=== PATIENT | male | born 1950 | race Caucasian/White ===

== ENCOUNTER 2021-04-14 16:15 | Emergency (ER) | payer OTHER, BC ==
[2021-04-14 16:44] VITALS: BMI 21.2
[2021-04-14] MEDS ORDERED: CLOTRIMAZOLE 1% CREAM 15 GM TUBE TP ONE (17:56)
[2021-04-14 18:41] LABS: BASO % 0.4 % (0-2.0); EOS % 1.4 % (0-4.5); HEMATOCRIT 36.4 % (35.4-49); HEMOGLOBIN 12.2 GM/dL (11.7-16.9); LYMPH % 16.7 % (8-40); MCHC 33.4 g/dl (32.0-35.9); MEAN CELL VOLUME 86.8 fl (80-96); MEAN PLT VOLUME 8.9 fl (7.5-11.1); MONO % 10.3 % (3.8-10.2); NEUT % 71.2 % (42.8-82.8); PLATELET COUNT 242 K/MM3 (134-434); RDW 15.8 % (11.9-15.9)
[2021-04-14 18:43] LABS: EPI CELLS 14 /uL (0-25.1); HYALINE CASTS 3 /uL (0-3.1); PH,URINE 8.5 (5.0-8.0); URINE APPEARANCE CLOUDY; URINE BILIRUBIN NEGATIVE (NEGATIVE); URINE COLOR YELLOW; URINE GLUCOSE (UA) NEGATIVE (NEGATIVE); URINE KETONE TRACE (NEGATIVE); URINE LEUK ESTERASE 3+ (NEGATIVE); URINE NITRITE POSITIVE (NEGATIVE); URINE PROTEIN 1+ (NEGATIVE); URINE RBC 485 /uL (0-23.9); URINE WBC 2976 /uL (0-25.8)
[2021-04-14 18:47] LABS: PROTHROMBIN TIME (PATIENT) 48.5 SEC (9.7-13.0)
[2021-04-14 18:50] LABS: ACTIVATED PTT 42.9 SECONDS (25.2-36.5); URINE BACTERIA 483.7 /uL (0-1359)
[2021-04-14 18:58] LABS: CALCIUM 8.9 mg/dL (8.5-10.1)
[2021-04-14 18:59] LABS: ALBUMIN 3.3 g/dl (3.4-5.0)
[2021-04-14 19:03] LABS: CREATININE 1.2 mg/dL (0.55-1.3)
[2021-04-14 19:04] LABS: BILIRUBIN,TOTAL 0.8 mg/dL (0.2-1)
[2021-04-14 19:19] LABS: INR 4.11 (0.83-1.09)
[2021-04-14] MEDS ORDERED: QUEtiapine FUMARATE 25 MG TABLET PO ONE (21:21)
[2021-04-14] MEDS ORDERED: QUEtiapine FUMARATE 25 MG TABLET ONE (21:21)
[2021-04-14] MEDS ORDERED: LORazepam 2 MG/ML SDV VIAL IVPUSH ONE (21:25)
[2021-04-14] MEDS ORDERED: LORazepam 2 MG/ML SDV VIAL ONE (21:26)
[2021-04-15 01:29] VITALS: BP 114/88; PULSE 75; TEMP 98.3
== END 2021-04-15 01:30 | disposition home or self-care (01) ==
LOC: JER 16:15
PROC: 3E033NZ Introduction of Analgesics, Hypnotics, Sedatives into Peripheral Vein, Percutaneous Approach (ICD-10-PCS; principal; 2021-04-14)
DX: L89.609 Pressure ulcer of unspecified heel, unspecified stage (principal); N48.1 Balanitis; N36.9 Urethral disorder, unspecified
CPT/HCPCS: 36415; 80053; 81003; 85025; 85610; 85730; 87086; 87186; 99284-25

== ENCOUNTER 2021-04-20 17:34 | Inpatient (IN) | payer OTHER, BC ==
[2021-04-20 19:08] VITALS: BMI 24.3
[2021-04-20] MEDS ORDERED: LORazepam 2 MG/ML SDV VIAL IM ONE (19:49)
[2021-04-20] MEDS ORDERED: HALOPERIDOL LACTATE 5 MG/ML IM ONE (19:49)
[2021-04-20] MEDS ORDERED: HALOPERIDOL LACTATE 5 MG/ML ONE (19:51)
[2021-04-20] MEDS ORDERED: LORazepam 2 MG/ML SDV VIAL ONE (19:52)
[2021-04-21 00:02] LABS: HEMATOCRIT 37.3 % (35.4-49); HEMOGLOBIN 12.6 GM/dL (11.7-16.9); LYMPH % 21.8 % (8-40); MCH 29.3 pg (25.7-33.7); MCHC 33.8 g/dl (32.0-35.9); MEAN CELL VOLUME 86.8 fl (80-96); MEAN PLT VOLUME 8.7 fl (7.5-11.1); MONO % 7.5 % (3.8-10.2); NEUT % 66.7 % (42.8-82.8); PLATELET COUNT 248 K/MM3 (134-434); WHITE BLOOD COUNT 8.2 K/mm3 (4.0-10.0)
[2021-04-21 00:09] LABS: EPI CELLS >36 /uL (0-25.1); HYALINE CASTS 9 /uL (0-3.1); PH,URINE 6.5 (5.0-8.0); URINE APPEARANCE CLOUDY; URINE BACTERIA 66 /uL (0-1359); URINE BILIRUBIN NEGATIVE (NEGATIVE); URINE COLOR YELLOW; URINE GLUCOSE (UA) NEGATIVE (NEGATIVE); URINE KETONE TRACE (NEGATIVE); URINE LEUK ESTERASE 2+ (NEGATIVE); URINE NITRITE NEGATIVE (NEGATIVE); URINE PROTEIN 1+ (NEGATIVE); URINE RBC 231 /uL (0-23.9); URINE WBC 208 /uL (0-25.8)
[2021-04-21 00:10] LABS: INR 1.5 (0.83-1.09); PROTHROMBIN TIME (PATIENT) 18.2 SEC (9.7-13.0)
[2021-04-21 00:14] LABS: ACTIVATED PTT 29.6 SECONDS (25.2-36.5)
[2021-04-21 00:23] LABS: CHLORIDE 106 mmol/L (98-107); SODIUM 139 mmol/L (136-145)
[2021-04-21 00:25] LABS: CALCIUM 9.2 mg/dL (8.5-10.1)
[2021-04-21 00:26] LABS: ALBUMIN 3.5 g/dl (3.4-5.0); ANION GAP 7 MMOL/L (8-16); BLOOD UREA NITROGEN 18.5 mg/dL (7-18); CO2 27 mmol/L (21-32); GLUCOSE,RANDOM 84 mg/dL (74-106)
[2021-04-21 00:29] LABS: SGOT/AST 23 U/L (15-37); SGPT/ALT 24 U/L (13-61)
[2021-04-21 00:30] LABS: BILIRUBIN,TOTAL 0.6 mg/dL (0.2-1); TOT PROT 7.5 g/dl (6.4-8.2)
[2021-04-21 00:32] LABS: ALK PHOS 108 U/L (45-117)
[2021-04-21 00:34] LABS: N-TERMINAL BNP 1265.4 pg/ml (5-125)
[2021-04-21 02:49] LABS: URINE CRYSTALS NONE SEEN /hpf
[2021-04-21] MEDS ORDERED: POLYETHYLENE GLYCOL 3350 119 GM BTL PO PRN (11:00)
[2021-04-21] MEDS ORDERED: ACETAMINOPHEN 325 MG TABLET (FP) PO PRN (11:00)
[2021-04-21] MEDS ORDERED: WARFARIN NA 5 MG TABLET ONE (17:33)
[2021-04-21] MEDS ORDERED: WARFARIN NA 5 MG TABLET PO SCH (18:00)
[2021-04-21] MEDS: METOPROLOL TARTRATE 50 MG TABLET (FP) PO SCH (22:21)
[2021-04-21] MEDS: ATORVASTATIN CA 80 MG TABLET (FP) PO SCH (22:21)
[2021-04-22 07:10] LABS: BASO % 0.8 % (0-2.0); EOS % 2.4 % (0-4.5); HEMOGLOBIN 11.9 GM/dL (11.7-16.9); LYMPH % 17.9 % (8-40); MCH 29.7 pg (25.7-33.7); MCHC 34.1 g/dl (32.0-35.9); MEAN CELL VOLUME 87.2 fl (80-96); MEAN PLT VOLUME 8.6 fl (7.5-11.1); MONO % 9.5 % (3.8-10.2); NEUT % 69.4 % (42.8-82.8); PLATELET COUNT 254 K/MM3 (134-434); RBC 4.01 M/mm3 (4.00-5.60); RDW 15.8 % (11.9-15.9)
[2021-04-22 07:13] LABS: INR 1.48 (0.83-1.09); PROTHROMBIN TIME (PATIENT) 17.7 SEC (9.7-13.0)
[2021-04-22 07:38] LABS: CALCIUM 8.9 mg/dL (8.5-10.1)
[2021-04-22 07:39] LABS: ALBUMIN 3.1 g/dl (3.4-5.0); BLOOD UREA NITROGEN 18.6 mg/dL (7-18)
[2021-04-22 07:42] LABS: BILIRUBIN,TOTAL 0.5 mg/dL (0.2-1); CREATININE 0.7 mg/dL (0.55-1.3)
[2021-04-22 07:45] LABS: TOT PROT 6.5 g/dl (6.4-8.2)
[2021-04-22] MEDS: PANTOPRAZOLE 40 MG TABLET PO SCH (09:48)
[2021-04-22] MEDS: SPIRONOLACTONE 25 MG TABLET PO SCH (09:48)
[2021-04-22] MEDS: SERTRALINE HCL 25 MG TABLET (FP) PO SCH (09:48)
[2021-04-22] MEDS: METOPROLOL TARTRATE 50 MG TABLET (FP) PO SCH (09:49)
[2021-04-22] MEDS: amLODIPine BESYLATE 10 MG TABLET (FP) PO SCH (09:49)
[2021-04-22 14:06] LABS: CHOLESTEROL 100 mg/dL (50-200)
[2021-04-22 14:07] LABS: LDL CHOLESTEROL (ONLY SJRH) 49 mg/dL (5-100); TRIGLYCERIDES 72 mg/dL (0-150)
[2021-04-22 14:09] LABS: HDL CHOLESTEROL 35 mg/dL (40-60)
[2021-04-22] MEDS ORDERED: WARFARIN NA 7.5 MG TABLET PO SCH ×2 (18:00→18:45)
[2021-04-22] MEDS ORDERED: HALOPERIDOL LACTATE 5 MG/ML IM ONE (20:02)
[2021-04-22] MEDS ORDERED: LORazepam 2 MG/ML SDV VIAL IVPUSH ONE (20:09)
[2021-04-22] MEDS ORDERED: LORazepam 2 MG/ML SDV VIAL ONE (20:12)
[2021-04-23] MEDS: METOPROLOL TARTRATE 50 MG TABLET (FP) PO SCH ×2 (00:30→09:56)
[2021-04-23] MEDS: ATORVASTATIN CA 80 MG TABLET (FP) PO SCH (00:30)
[2021-04-23 07:29] LABS: INR 2.01 (0.83-1.09); PROTHROMBIN TIME (PATIENT) 24.2 SEC (9.7-13.0)
[2021-04-23 09:07] VITALS: BP 111/67; PULSE 80; TEMP 97.5
[2021-04-23] MEDS: SERTRALINE HCL 25 MG TABLET (FP) PO SCH (09:56)
[2021-04-23] MEDS: amLODIPine BESYLATE 10 MG TABLET (FP) PO SCH (09:56)
[2021-04-23] MEDS: PANTOPRAZOLE 40 MG TABLET PO SCH (09:56)
[2021-04-23] MEDS: SPIRONOLACTONE 25 MG TABLET PO SCH (09:56)
[2021-04-23] MEDS ORDERED: BACITRACIN 15 GM TUBE TOPICAL OINTMENT TP SCH (10:00)
[2021-04-23] MEDS ORDERED: WARFARIN NA 7.5 MG TABLET PO SCH (18:00)
== END 2021-04-23 15:26 | DRG 64 ==
LOC: JER 17:34 → JERBED 04-21 01:58 → J4W 04-21 21:27
PROVIDERS: ADMIT Hospitalist; ATTEND Internal Medicine
DX: I63.9 Cerebral infarction, unspecified (principal); L89.613 Pressure ulcer of right heel, stage 3; F03.91 Unspecified dementia, unspecified severity, with behavioral disturbance; I48.91 Unspecified atrial fibrillation; I10 Essential (primary) hypertension; E78.5 Hyperlipidemia, unspecified
CPT/HCPCS: 36415; 70450-TC; 72125-TC; 80053; 80061; 81003; 82550; 82962; 83036; 83721; 83880; 84484; 85025; 85610; 85730; 87086; 93005; 93010; 93880-TC; 97116-GP; 97161-GP; 99285-25; C9803; U0003; U0005

== ENCOUNTER 2021-04-25 07:43 | Emergency (ER) | payer OTHER, BC ==
[2021-04-25 08:03] VITALS: TEMP 98.5; BMI 23.3
[2021-04-25 10:53] VITALS: BP 125/60; PULSE 65
== END 2021-04-25 10:29 | disposition home or self-care (01) ==
LOC: JER 07:43
DX: T83.028A Displacement of other urinary catheter, initial encounter (principal)
CPT/HCPCS: 99283-25

== ENCOUNTER 2021-05-10 23:43 | Observation (INO) | payer OTHER, BC ==
[2021-05-11 01:18] LABS: EOS % 3.8 % (0-4.5); HEMATOCRIT 35.7 % (35.4-49); HEMOGLOBIN 11.9 GM/dL (11.7-16.9); LYMPH % 23.9 % (8-40); MCH 29.1 pg (25.7-33.7); MCHC 33.5 g/dl (32.0-35.9); MONO % 9.7 % (3.8-10.2); NEUT % 61.6 % (42.8-82.8); PLATELET COUNT 235 10^3/uL (134-434); RDW 16.5 % (11.9-15.9); WHITE BLOOD COUNT 6.8 K/mm3 (4.0-10.0)
[2021-05-11 01:25] LABS: INR 1.33 (0.83-1.09); PROTHROMBIN TIME (PATIENT) 16.2 SEC (9.7-13.0)
[2021-05-11 01:27] LABS: ACTIVATED PTT 29.6 SECONDS (25.2-36.5)
[2021-05-11 01:38] LABS: ALBUMIN 3.1 g/dl (3.4-5.0); BLOOD UREA NITROGEN 22.6 mg/dL (7-18); CALCIUM 8.8 mg/dL (8.5-10.1)
[2021-05-11 01:41] LABS: CREATININE 0.8 mg/dL (0.55-1.3)
[2021-05-11 01:43] LABS: BILIRUBIN,TOTAL 0.5 mg/dL (0.2-1); TOT PROT 6.4 g/dl (6.4-8.2)
[2021-05-11 03:25] LABS: EPI CELLS 18 /uL (0-25.1); HYALINE CASTS 1 /uL (0-3.1); PH,URINE 5.5 (5.0-8.0); URINE APPEARANCE CLEAR; URINE BACTERIA 54 /uL (0-1359); URINE BILIRUBIN NEGATIVE (NEGATIVE); URINE COLOR YELLOW; URINE GLUCOSE (UA) NEGATIVE (NEGATIVE); URINE KETONE NEGATIVE (NEGATIVE); URINE LEUK ESTERASE 2+ (NEGATIVE); URINE NITRITE NEGATIVE (NEGATIVE); URINE PROTEIN 1+ (NEGATIVE); URINE RBC 61 /uL (0-23.9); URINE WBC 212 /uL (0-25.8)
[2021-05-11] MEDS ORDERED: CEFTRIAXONE 1,000 MG in DEXTROSE 5%-WATER - 50 ML IVPB ONE (04:41)
[2021-05-11] MEDS ORDERED: CEFTRIAXONE 1 GM/50 ML BAG ONE (05:01)
[2021-05-11 12:12] VITALS: BMI 21.3
[2021-05-11] MEDS ORDERED: POLYETHYLENE GLYCOL 3350 119 GM BTL PO PRN (12:20)
[2021-05-11] MEDS ORDERED: ACETAMINOPHEN 325 MG TABLET (FP) PO PRN (12:20)
[2021-05-11] MEDS: amLODIPine BESYLATE 10 MG TABLET (FP) PO SCH (15:16)
[2021-05-11] MEDS: QUEtiapine FUMARATE 25 MG TABLET PO SCH ×2 (15:16→23:00)
[2021-05-11] MEDS: SERTRALINE HCL 25 MG TABLET (FP) PO SCH (15:16)
[2021-05-11] MEDS ORDERED: PT OWN MED DRAWER 7, Y5N ONE (17:22)
[2021-05-11] MEDS: LORazepam 2 MG/ML SDV VIAL IVPUSH PRN (18:50)
[2021-05-11] MEDS ORDERED: ATORVASTATIN CA 80 MG TABLET (FP) PO SCH (22:00)
[2021-05-11] MEDS: METOPROLOL TARTRATE 50 MG TABLET (FP) PO SCH (23:00)
[2021-05-12] MEDS: LORazepam 2 MG/ML SDV VIAL IVPUSH PRN (08:28)
[2021-05-12] MEDS: amLODIPine BESYLATE 10 MG TABLET (FP) PO SCH (09:10)
[2021-05-12] MEDS: QUEtiapine FUMARATE 25 MG TABLET PO SCH ×2 (09:10→12:03)
[2021-05-12] MEDS: METOPROLOL TARTRATE 50 MG TABLET (FP) PO SCH (09:10)
[2021-05-12] MEDS: SERTRALINE HCL 25 MG TABLET (FP) PO SCH (09:10)
[2021-05-12] MEDS ORDERED: SPIRONOLACTONE 25 MG TABLET PO SCH (10:00)
[2021-05-12] MEDS ORDERED: PANTOPRAZOLE 40 MG TABLET PO SCH (10:00)
[2021-05-12] MEDS ORDERED: NYSTATIN 100000 UNIT/GM TOPICAL OINTMENT 15 GM TUBE TP SCH (10:00)
[2021-05-12] MEDS ORDERED: SILVER SULFADIAZINE 1% TOP CREAM 50 GM JAR TP SCH (10:00)
[2021-05-12] MEDS ORDERED: DEXMEDETOMIDINE HCL 200 MCG/2 ML IVPB ONE (13:09)
[2021-05-12] MEDS ORDERED: ACETAMINOPHEN INJECTION 100 ML IVPB ONE (13:10)
[2021-05-12] MEDS ORDERED: LIDOCAINE HCL 2% JELLY (5 ML/TUBE) ONE (13:35)
[2021-05-12] MEDS ORDERED: PROPOFOL 20 ML ONE (13:36)
[2021-05-12] MEDS ORDERED: KETAMINE HCL 200 MG/20 ML VIAL ONE (13:37)
[2021-05-12] MEDS ORDERED: EPHEDRINE SULFATE/0.9% NACL/PF 50 MG/10 ML SYRINGE NR ONE (13:37)
[2021-05-12] MEDS ORDERED: ceFAZolin 2 GRAM PREMIX BAG IVPB ONE (13:57)
[2021-05-12] MEDS ORDERED: POLYETHYLENE GLYCOL (HEALTHYLAX) 3350 17 GM PACKET PO PRN (14:52)
[2021-05-12] MEDS ORDERED: ACETAMINOPHEN 325 MG TABLET (FP) PO PRN (14:52)
[2021-05-12] MEDS ORDERED: LORazepam 2 MG/ML SDV VIAL IVPUSH PRN (14:52)
[2021-05-12 16:30] VITALS: BP 133/84; PULSE 76; TEMP 97.6
[2021-05-12] MEDS ORDERED: METOPROLOL TARTRATE 50 MG TABLET (FP) PO SCH (22:00)
[2021-05-12] MEDS ORDERED: ATORVASTATIN CA 80 MG TABLET (FP) PO SCH (22:00)
[2021-05-12] MEDS ORDERED: QUEtiapine FUMARATE 25 MG TABLET PO SCH (22:00)
[2021-05-13] MEDS ORDERED: SPIRONOLACTONE 25 MG TABLET PO SCH (10:00)
[2021-05-13] MEDS ORDERED: PANTOPRAZOLE 40 MG TABLET PO SCH (10:00)
[2021-05-13] MEDS ORDERED: SERTRALINE HCL 25 MG TABLET (FP) PO SCH (10:00)
[2021-05-13] MEDS ORDERED: NYSTATIN 100000 UNIT/GM TOPICAL OINTMENT 15 GM TUBE TP SCH (10:00)
[2021-05-13] MEDS ORDERED: amLODIPine BESYLATE 10 MG TABLET (FP) PO SCH (10:00)
[2021-05-13] MEDS ORDERED: SILVER SULFADIAZINE 1% TOP CREAM 50 GM JAR TP SCH (10:00)
[2021-05-13] MEDS ORDERED: QUEtiapine FUMARATE 25 MG TABLET PO SCH (12:30)
== END 2021-05-12 21:00 ==
LOC: JER 23:43 → UNDOADMOB 05-11 05:13 → JERBED 05-11 05:13 → INTOOBSV 05-11 05:13 → JERBED 05-11 09:21 → J7W 05-11 09:21 → JERBED 05-11 10:21 → J7W 05-11 18:33
PROVIDERS: ADMIT Internal Medicine; ATTEND Internal Medicine
PROC: 0T9B00Z Drainage of Bladder with Drainage Device, Open Approach (ICD-10-PCS; principal; 2021-05-11)
PROC: 0T9B70Z Drainage of Bladder with Drainage Device, Via Natural or Artificial Opening (ICD-10-PCS; 2021-05-11)
PROC: 3E03329 Introduction of Other Anti-infective into Peripheral Vein, Percutaneous Approach (ICD-10-PCS; 2021-05-11)
DX: T83.020A Displacement of cystostomy catheter, initial encounter (principal); T07.XXXA Unspecified multiple injuries, initial encounter; Y82.8 Other medical devices associated with adverse incidents; Y92.9 Unspecified place or not applicable; R33.8 Other retention of urine; N39.0 Urinary tract infection, site not specified; F03.90 Unspecified dementia, unspecified severity, without behavioral disturbance, psychotic disturbance, mood disturbance, and anxiety; I50.9 Heart failure, unspecified; I11.0 Hypertensive heart disease with heart failure; I48.91 Unspecified atrial fibrillation; Z86.73 Personal history of transient ischemic attack (TIA), and cerebral infarction without residual deficits; Z20.822 Contact with and (suspected) exposure to COVID-19; R41.82 Altered mental status, unspecified
CPT/HCPCS: 36415; 51040; 51702; 80053; 81003; 85025; 85610; 85730; 86850; 86900; 86901; 87086; 93005; 93010; 94760; 96374; 96375; 99285-25; C9803; G0378; J0131; U0003; U0005

== ENCOUNTER 2021-07-04 14:43 | Inpatient (IN) | payer OTHER, BC ==
[2021-07-04 17:45] LABS: INR 2.17 (0.83-1.09); PROTHROMBIN TIME (PATIENT) 26.1 SEC (9.7-13.0)
[2021-07-04 19:55] LABS: HEMATOCRIT 41.7 % (35.4-49); MCH 30.6 pg (25.7-33.7); MCHC 33.7 g/dl (32.0-35.9); MEAN CELL VOLUME 90.8 fl (80-96); MEAN PLT VOLUME 9.7 fl (7.5-11.1); PLATELET COUNT 249 10^3/uL (134-434); RBC 4.59 M/mm3 (4.00-5.60); RDW 14.7 % (11.9-15.9); WHITE BLOOD COUNT 14.4 K/mm3 (4.0-10.0)
[2021-07-04 19:58] LABS: ADD RBC MORPHOLOGY YES
[2021-07-04 20:09] LABS: EPI CELLS 33 /uL (0-25.1); HYALINE CASTS 19 /uL (0-3.1); PH,URINE >= 9.0 (5.0-8.0); URINE APPEARANCE TURBID; URINE BACTERIA 2339 /uL (0-1359); URINE BILIRUBIN NEGATIVE (NEGATIVE); URINE COLOR YELLOW; URINE GLUCOSE (UA) TRACE (NEGATIVE); URINE KETONE NEGATIVE (NEGATIVE); URINE LEUK ESTERASE 3+ (NEGATIVE); URINE NITRITE NEGATIVE (NEGATIVE); URINE PROTEIN 3+ (NEGATIVE); URINE RBC 138 /uL (0-23.9); URINE WBC 46 /uL (0-25.8)
[2021-07-04 20:27] LABS: CHLORIDE 104 mmol/L (98-107); SODIUM 138 mmol/L (136-145)
[2021-07-04 20:29] LABS: CALCIUM 9.1 mg/dL (8.5-10.1)
[2021-07-04 20:30] LABS: ALBUMIN 4.1 g/dl (3.4-5.0); ANION GAP 10 MMOL/L (8-16); CO2 24 mmol/L (21-32); GLUCOSE,RANDOM 157 mg/dL (74-106)
[2021-07-04 20:33] LABS: CREATININE 1.1 mg/dL (0.55-1.3); SGOT/AST 28 U/L (15-37); SGPT/ALT 50 U/L (13-61)
[2021-07-04 20:36] LABS: ALK PHOS 124 U/L (45-117)
[2021-07-04 20:38] LABS: TOT PROT 8.1 g/dl (6.4-8.2)
[2021-07-04 20:47] LABS: BILIRUBIN,TOTAL 0.7 mg/dL (0.2-1)
[2021-07-04] MEDS ORDERED: CEFTRIAXONE 1,000 MG in DEXTROSE 5%-WATER - 50 ML IVPB ONE (20:53)
[2021-07-04 21:03] LABS: ANISOCYTOSIS 0; MACROCYTOSIS 0; PLATELET ESTIMATE NORMAL
[2021-07-04] MEDS ORDERED: CEFTRIAXONE 1 GM/50 ML BAG ONE (21:31)
[2021-07-04] MEDS ORDERED: QUEtiapine FUMARATE 25 MG TABLET PO ONE (23:25)
[2021-07-04] MEDS ORDERED: QUEtiapine FUMARATE 25 MG TABLET ONE (23:36)
[2021-07-05] MEDS ORDERED: POLYETHYLENE GLYCOL (HEALTHYLAX) 3350 17 GM PACKET PO PRN (06:42)
[2021-07-05] MEDS ORDERED: PANTOPRAZOLE 40 MG TABLET ONE (09:44)
[2021-07-05] MEDS ORDERED: CEFTRIAXONE 1 GM/50 ML BAG ONE (09:45)
[2021-07-05] MEDS ORDERED: METOPROLOL TARTRATE 50 MG TABLET (FP) ONE (09:45)
[2021-07-05] MEDS ORDERED: SPIRONOLACTONE 25 MG TABLET ONE (09:45)
[2021-07-05] MEDS ORDERED: QUEtiapine FUMARATE 25 MG TABLET ONE ×2 (09:45→12:22)
[2021-07-05] MEDS: SPIRONOLACTONE 25 MG TABLET PO SCH (10:08)
[2021-07-05] MEDS: METOPROLOL TARTRATE 50 MG TABLET (FP) PO SCH ×2 (10:08→22:46)
[2021-07-05] MEDS: amLODIPine BESYLATE 5 MG TABLET (FP) PO SCH (10:08)
[2021-07-05] MEDS: PANTOPRAZOLE 40 MG TABLET PO SCH (10:08)
[2021-07-05] MEDS: CEFTRIAXONE 1 GM in DEXTROSE 5%-WATER - 50 ML IVPB SCH (10:08)
[2021-07-05 10:25] LABS: BASO % 0.1 % (0-2.0); HEMATOCRIT 39.4 % (35.4-49); HEMOGLOBIN 13.4 GM/dL (11.7-16.9); MCH 30.2 pg (25.7-33.7); MEAN CELL VOLUME 88.8 fl (80-96); MEAN PLT VOLUME 8.7 fl (7.5-11.1); MONO % 7.1 % (3.8-10.2); NEUT % 88.8 % (42.8-82.8); PLATELET COUNT 239 10^3/uL (134-434); RBC 4.44 M/mm3 (4.00-5.60); RDW 15.3 % (11.9-15.9); WHITE BLOOD COUNT 16.2 K/mm3 (4.0-10.0)
[2021-07-05] MEDS: QUEtiapine FUMARATE 25 MG TABLET PO SCH ×3 (10:42→22:47)
[2021-07-05] MEDS: SERTRALINE HCL 25 MG TABLET (FP) PO SCH (10:42)
[2021-07-05 10:44] LABS: INR 1.83 (0.83-1.09); PROTHROMBIN TIME (PATIENT) 21.8 SEC (9.7-13.0)
[2021-07-05 11:31] LABS: CALCIUM 9.3 mg/dL (8.5-10.1)
[2021-07-05 11:32] LABS: BLOOD UREA NITROGEN 35.1 mg/dL (7-18)
[2021-07-05 11:35] LABS: CREATININE 0.9 mg/dL (0.55-1.3)
[2021-07-05] MEDS ORDERED: WARFARIN NA 1 MG TABLET ONE (17:15)
[2021-07-05] MEDS ORDERED: WARFARIN NA 5 MG TABLET ONE (17:16)
[2021-07-05] MEDS ORDERED: WARFARIN NA 1 MG TABLET PO ONE (18:00)
[2021-07-05] MEDS ORDERED: WARFARIN NA 7.5 MG TABLET PO SCH ×2 (18:00→18:05)
[2021-07-05] MEDS: ATORVASTATIN CA 80 MG TABLET (FP) PO SCH (22:47)
[2021-07-06 10:40] LABS: BASO % 0.2 % (0-2.0); EOS % 0.5 % (0-4.5); HEMATOCRIT 38.4 % (35.4-49); HEMOGLOBIN 12.6 GM/dL (11.7-16.9); LYMPH % 11.5 % (8-40); MCH 30.2 pg (25.7-33.7); MCHC 32.8 g/dl (32.0-35.9); MEAN CELL VOLUME 92.1 fl (80-96); MEAN PLT VOLUME 9.5 fl (7.5-11.1); MONO % 8.4 % (3.8-10.2); NEUT % 79.4 % (42.8-82.8); PLATELET COUNT 193 10^3/uL (134-434); RBC 4.17 M/mm3 (4.00-5.60); RDW 15.1 % (11.9-15.9); WHITE BLOOD COUNT 12.8 K/mm3 (4.0-10.0)
[2021-07-06 10:48] LABS: INR 2.18 (0.83-1.09); PROTHROMBIN TIME (PATIENT) 25.8 SEC (9.7-13.0)
[2021-07-06] MEDS ORDERED: DEXTROSE 5%-WATER - 50 ML IVPB ONE (10:57)
[2021-07-06] MEDS ORDERED: cefTRIAXone SODIUM 1 GM VIAL ONE (10:57)
[2021-07-06] MEDS ORDERED: PT OWN MED DRAWER 7, Y5N ONE ×2 (10:57→18:02)
[2021-07-06] MEDS: METOPROLOL TARTRATE 50 MG TABLET (FP) PO SCH ×2 (10:59→22:01)
[2021-07-06] MEDS: PANTOPRAZOLE 40 MG TABLET PO SCH (10:59)
[2021-07-06] MEDS: amLODIPine BESYLATE 5 MG TABLET (FP) PO SCH (10:59)
[2021-07-06] MEDS: CEFTRIAXONE 1 GM in DEXTROSE 5%-WATER - 50 ML IVPB SCH (10:59)
[2021-07-06] MEDS: SERTRALINE HCL 25 MG TABLET (FP) PO SCH (10:59)
[2021-07-06] MEDS: QUEtiapine FUMARATE 25 MG TABLET PO SCH ×3 (11:00→22:07)
[2021-07-06] MEDS: SPIRONOLACTONE 25 MG TABLET PO SCH (11:00)
[2021-07-06] MEDS: OXYBUTYNIN CHLORIDE 5 MG TABLET PO SCH ×2 (11:00→22:00)
[2021-07-06] MEDS: WARFARIN NA 2.5 MG, WARFARIN NA 1 MG PO SCH (18:20)
[2021-07-06] MEDS: ATORVASTATIN CA 80 MG TABLET (FP) PO SCH (22:00)
[2021-07-07] MEDS ORDERED: DEXTROSE 5%-WATER - 50 ML IVPB ONE (09:33)
[2021-07-07] MEDS ORDERED: cefTRIAXone SODIUM 1 GM VIAL ONE (09:33)
[2021-07-07] MEDS: SERTRALINE HCL 25 MG TABLET (FP) PO SCH (09:36)
[2021-07-07] MEDS: PANTOPRAZOLE 40 MG TABLET PO SCH (09:36)
[2021-07-07] MEDS: CEFTRIAXONE 1 GM in DEXTROSE 5%-WATER - 50 ML IVPB SCH (09:36)
[2021-07-07] MEDS: METOPROLOL TARTRATE 50 MG TABLET (FP) PO SCH ×2 (09:36→21:00)
[2021-07-07] MEDS: OXYBUTYNIN CHLORIDE 5 MG TABLET PO SCH ×2 (09:36→21:00)
[2021-07-07] MEDS: SPIRONOLACTONE 25 MG TABLET PO SCH (09:36)
[2021-07-07] MEDS: amLODIPine BESYLATE 5 MG TABLET (FP) PO SCH (09:36)
[2021-07-07] MEDS: QUEtiapine FUMARATE 25 MG TABLET PO SCH ×2 (09:37→21:00)
[2021-07-07 18:06] LABS: PROTHROMBIN TIME (PATIENT) 52.9 SEC (9.7-13.0)
[2021-07-07 18:46] LABS: INR 4.57 (0.83-1.09)
[2021-07-07] MEDS: WARFARIN NA 2.5 MG, WARFARIN NA 1 MG PO SCH (18:57)
[2021-07-07] MEDS: ATORVASTATIN CA 80 MG TABLET (FP) PO SCH (21:00)
[2021-07-08] MEDS ORDERED: PT OWN MED DRAWER 7, Y5N ONE ×2 (08:30→09:10)
[2021-07-08] MEDS ORDERED: DEXTROSE 5%-WATER - 50 ML IVPB ONE (09:10)
[2021-07-08] MEDS ORDERED: cefTRIAXone SODIUM 1 GM VIAL ONE (09:10)
[2021-07-08] MEDS: amLODIPine BESYLATE 5 MG TABLET (FP) PO SCH (09:14)
[2021-07-08] MEDS: SPIRONOLACTONE 25 MG TABLET PO SCH (09:14)
[2021-07-08] MEDS: PANTOPRAZOLE 40 MG TABLET PO SCH (09:14)
[2021-07-08] MEDS: METOPROLOL TARTRATE 50 MG TABLET (FP) PO SCH ×2 (09:14→21:16)
[2021-07-08] MEDS: CEFTRIAXONE 1 GM in DEXTROSE 5%-WATER - 50 ML IVPB SCH (09:15)
[2021-07-08] MEDS: OXYBUTYNIN CHLORIDE 5 MG TABLET PO SCH ×2 (09:15→21:16)
[2021-07-08 09:30] LABS: BASO % 0.5 % (0-2.0); EOS % 3.4 % (0-4.5); HEMATOCRIT 35.8 % (35.4-49); LYMPH % 12.5 % (8-40); MCH 30.5 pg (25.7-33.7); MCHC 33.6 g/dl (32.0-35.9); MEAN CELL VOLUME 90.8 fl (80-96); MEAN PLT VOLUME 9.4 fl (7.5-11.1); MONO % 7.6 % (3.8-10.2); PLATELET COUNT 189 10^3/uL (134-434); RBC 3.95 M/mm3 (4.00-5.60); RDW 14.2 % (11.9-15.9); WHITE BLOOD COUNT 8.8 K/mm3 (4.0-10.0)
[2021-07-08 09:46] LABS: PROTHROMBIN TIME (PATIENT) 50.2 SEC (9.7-13.0)
[2021-07-08 09:55] LABS: BLOOD UREA NITROGEN 36.5 mg/dL (7-18)
[2021-07-08 09:56] LABS: CALCIUM 8.6 mg/dL (8.5-10.1)
[2021-07-08 09:59] LABS: CREATININE 0.8 mg/dL (0.55-1.3)
[2021-07-08 10:00] LABS: BILIRUBIN,TOTAL 0.7 mg/dL (0.2-1)
[2021-07-08 10:13] LABS: INR 4.26 (0.83-1.09)
[2021-07-08 10:18] LABS: ALBUMIN 3.2 g/dl (3.4-5.0)
[2021-07-08] MEDS: WARFARIN NA 2.5 MG, WARFARIN NA 1 MG PO SCH (17:04)
[2021-07-08] MEDS: ATORVASTATIN CA 80 MG TABLET (FP) PO SCH (21:16)
[2021-07-08] MEDS: QUEtiapine FUMARATE 25 MG TABLET PO SCH (21:16)
[2021-07-09] MEDS ORDERED: DEXTROSE 5%-WATER - 50 ML IVPB ONE (10:22)
[2021-07-09] MEDS ORDERED: cefTRIAXone SODIUM 1 GM VIAL ONE (10:22)
[2021-07-09] MEDS ORDERED: PT OWN MED DRAWER 7, Y5N ONE (10:22)
[2021-07-09] MEDS: SPIRONOLACTONE 25 MG TABLET PO SCH (10:23)
[2021-07-09] MEDS: CEFTRIAXONE 1 GM in DEXTROSE 5%-WATER - 50 ML IVPB SCH (10:24)
[2021-07-09] MEDS: amLODIPine BESYLATE 5 MG TABLET (FP) PO SCH (10:24)
[2021-07-09] MEDS: OXYBUTYNIN CHLORIDE 5 MG TABLET PO SCH (10:24)
[2021-07-09] MEDS: PANTOPRAZOLE 40 MG TABLET PO SCH (10:24)
[2021-07-09] MEDS: METOPROLOL TARTRATE 50 MG TABLET (FP) PO SCH (10:24)
[2021-07-09 10:54] LABS: INR 2.74 (0.83-1.09); PROTHROMBIN TIME (PATIENT) 32.2 SEC (9.7-13.0)
[2021-07-09 15:03] VITALS: BP 116/70; PULSE 62; TEMP 98.3
== END 2021-07-09 15:49 | DRG 699 ==
LOC: JER 14:43 → JERBED 19:15 → J8W 07-05 18:40
PROVIDERS: ADMIT Internal Medicine; ATTEND Internal Medicine
DX: T83.510A Infection and inflammatory reaction due to cystostomy catheter, initial encounter (principal); N39.0 Urinary tract infection, site not specified; I50.30 Unspecified diastolic (congestive) heart failure; T83.010A Breakdown (mechanical) of cystostomy catheter, initial encounter; W19.XXXA Unspecified fall, initial encounter; I48.91 Unspecified atrial fibrillation; F03.90 Unspecified dementia, unspecified severity, without behavioral disturbance, psychotic disturbance, mood disturbance, and anxiety; Y83.8 Other surgical procedures as the cause of abnormal reaction of the patient, or of later complication, without mention of misadventure at the time of the procedure; E78.5 Hyperlipidemia, unspecified; D72.829 Elevated white blood cell count, unspecified
CPT/HCPCS: 36415; 70450-TC; 71046-TC-FY; 72125-TC; 80048; 80053; 81003; 82550; 82962; 84484; 85025; 85610; 87086; 87186; 93005; 93010; 97116-GP; 97161-GP; 99285-25; C9803; U0003; U0005